=== PATIENT | male | born 1950 | race Caucasian/White ===

== ENCOUNTER 2017-09-08 00:46 | Emergency (ER) | payer OTHER ==
[~2017-09-08] VITALS: Ht 182.9 cm; Wt 95.2 kg
[~2017-09-08 00:46] MED LIST: BUSPIRONE HCL10 MG PO; MINIPRESS2 MG PO; MIRTAZAPINE30 MG PO; SEROQUEL XR50 MG PO
[2017-09-08] MEDS ORDERED: LIPITOR40 MG PO (01:21)
== END 2017-09-08 02:29 | disposition home or self-care (01) ==
LOC: ED 00:46
DX: F25.0 Schizoaffective disorder, bipolar type (principal); F43.10 Post-traumatic stress disorder, unspecified; F32.9 Major depressive disorder, single episode, unspecified; F17.200 Nicotine dependence, unspecified, uncomplicated; Z79.899 Other long term (current) drug therapy
CPT/HCPCS: 36415; 80053; 80176; 81001; 84443; 85025; 99283; G0480

== ENCOUNTER 2017-10-05 16:06 | Emergency (ER) | payer OTHER ==
[~2017-10-05 16:06] MED LIST changes: +LIPITOR40 MG PO
== END 2017-10-06 01:31 | disposition home or self-care (01) ==
LOC: ED 16:06
DX: Z00.00 Encounter for general adult medical examination without abnormal findings (principal); F32.9 Major depressive disorder, single episode, unspecified; F44.81 Dissociative identity disorder
CPT/HCPCS: 71010; 80053; 80176; 81001; 84443; 85025; 99283; G0480

== ENCOUNTER 2017-10-13 17:24 | Emergency (ER) | payer OTHER ==
[~2017-10-13] VITALS: Ht 182.9 cm; Wt 95.2 kg
== END 2017-10-13 21:15 | disposition home or self-care (01) ==
LOC: ED 17:24
DX: Z00.8 Encounter for other general examination (principal); F43.10 Post-traumatic stress disorder, unspecified; F20.9 Schizophrenia, unspecified; F17.200 Nicotine dependence, unspecified, uncomplicated; Z79.899 Other long term (current) drug therapy
CPT/HCPCS: 99283

== ENCOUNTER 2019-01-11 02:47 | Emergency (ER) | payer OTHER ==
[~2019-01-11] VITALS: Ht 182.9 cm; Wt 95.2 kg
[2019-01-11] MEDS ORDERED: BUSPIRONE HCL10 MG PO (05:24)
[2019-01-11] MEDS ORDERED: VITAMIN B-121000 MC3 PO (05:25)
[2019-01-11] MEDS ORDERED: REMERON15 MG PO (05:26)
[2019-01-11] MEDS ORDERED: MINIPRESS2 MG PO (05:26)
[2019-01-11] MEDS ORDERED: QUETIAPINE FUM100 MG PO (05:27)
[2019-01-11] MEDS ORDERED: B-1100 MG PO (05:28)
== END 2019-01-11 17:10 | disposition home or self-care (01) ==
LOC: ED 02:47
DX: F31.9 Bipolar disorder, unspecified (principal); F43.10 Post-traumatic stress disorder, unspecified; F17.200 Nicotine dependence, unspecified, uncomplicated; Z79.899 Other long term (current) drug therapy
CPT/HCPCS: 36415; 80053; 80176; 81001; 84443; 85025; 99284; G0480

== ENCOUNTER 2019-01-12 17:04 | Emergency (ER) | payer OTHER ==
[~2019-01-12] VITALS: Ht 182.9 cm; Wt 95.2 kg
[~2019-01-12 17:04] MED LIST changes: +B-1100 MG PO; +QUETIAPINE FUM100 MG PO; +REMERON15 MG PO; +VITAMIN B-121000 MC3 PO
--- OUTSIDE RECORDS SUMMARY | 2019-01-12 17:08 | XMS ---
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 Anna has no Care Guidelines for this patient. Ana Laura VISIT COUNT (12 MO.) 2 [facility] [place] TOTAL 2 NOTE: Visits indicate total known visits. ED/C VISIT TRACKING (12 MO.) 01/12/2019 17:05 [facility] [place] TYPE: Emergency COMPLAINT: - MEDICAL CLEARANCE 01/11/2019 02:47 [facility] [place] TYPE: Emergency COMPLAINT: - MEDICAL CLEARANCE INPATIENT VISIT TRACKING (12 MO.) No inpatient visits to display in this time frame [email or web address]
== END 2019-01-12 21:34 | disposition home or self-care (01) ==
LOC: ED 17:04
DX: F25.0 Schizoaffective disorder, bipolar type (principal); F17.200 Nicotine dependence, unspecified, uncomplicated; Z79.899 Other long term (current) drug therapy
CPT/HCPCS: 36415; 80053; 80176; 81001; 84443; 85025; 99285; G0480

== ENCOUNTER 2019-01-14 12:02 | Emergency (ER) | payer OTHER ==
[~2019-01-14] VITALS: Ht 182.9 cm; Wt 95.2 kg
--- OUTSIDE RECORDS SUMMARY | 2019-01-14 12:06 | XMS ---
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 Anna has no Care Guidelines for this patient. Ana Laura VISIT COUNT (12 MO.) 3 [facility] [place]. TOTAL 3 NOTE: Visits indicate total known visits. ED/C VISIT TRACKING (12 MO.) 01/14/2019 12:03 [facility] [place] TYPE: Emergency COMPLAINT: - SUICIDAL IDEATION 01/12/2019 17:05 [facility] [place] TYPE: Emergency COMPLAINT: - MEDICAL CLEARANCE 01/11/2019 02:47 [facility] [place] TYPE: Emergency COMPLAINT: - MEDICAL CLEARANCE DIAGNOSES: - Post-traumatic stress disorder, unspecified - Other meterman (current) drug therapy - Encounter for other general examination - Bipolar disorder, unspecified - Nicotine dependence, unspecified, uncomplicated INPATIENT VISIT TRACKING (12 MO.) No inpatient visits to display in this time frame [id number]
== END 2019-01-14 16:32 | disposition home or self-care (01) ==
LOC: ED 12:02
DX: F32.9 Major depressive disorder, single episode, unspecified (principal); E86.0 Dehydration; F43.10 Post-traumatic stress disorder, unspecified; F17.200 Nicotine dependence, unspecified, uncomplicated; Z79.899 Other long term (current) drug therapy
CPT/HCPCS: 36415; 80053; 80176; 81001; 84443; 85025; 87088; 99284; G0480

== ENCOUNTER 2019-01-18 17:38 | Emergency (ER) | payer OTHER ==
[~2019-01-18] VITALS: Ht 182.9 cm; Wt 95.2 kg
--- OUTSIDE RECORDS SUMMARY | 2019-01-18 17:40 | XMS ---
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 Anna has no Care Guidelines for this patient. Ana Laura VISIT COUNT (12 MO.) [address] [facility] [address] TOTAL 4 NOTE: Visits indicate total known visits. ED/C VISIT TRACKING (12 MO.) 01/18/2019 17:[address] [facility] [place] TYPE: Emergency COMPLAINT: - MEDICAL CLEARANCE 01/14/2019 12:03 [facility] TYPE: Emergency COMPLAINT: - SUICIDAL IDEATION DIAGNOSES: - Dehydration - Suicidal ideations - Major depressive disorder, single episode, unspecified - Other terminal carman (current) drug therapy - Nicotine dependence, unspecified, uncomplicated - Post-traumatic stress disorder, unspecified 01/12/2019 17:05 [facility] [place] TYPE: Emergency COMPLAINT: - MEDICAL CLEARANCE DIAGNOSES: - Other terminal carman (current) drug therapy - Schizoaffective disorder, bipolar type - Nicotine dependence, unspecified, uncomplicated 01/11/2019 02:[address] [facility] [place] TYPE: Emergency COMPLAINT: - MEDICAL CLEARANCE DIAGNOSES: - Post-traumatic stress disorder, unspecified - Other terminal carman (current) drug therapy - Encounter for other general examination - Bipolar disorder, unspecified - Nicotine dependence, unspecified, uncomplicated INPATIENT VISIT TRACKING (12 MO.) No inpatient visits to display in this time frame [id number]
== END 2019-01-18 18:50 | disposition home or self-care (01) ==
LOC: ED 17:38
DX: F43.10 Post-traumatic stress disorder, unspecified (principal); F44.81 Dissociative identity disorder; F39 Unspecified mood [affective] disorder; F32.9 Major depressive disorder, single episode, unspecified; F17.200 Nicotine dependence, unspecified, uncomplicated; Z79.899 Other long term (current) drug therapy
CPT/HCPCS: 99284

== ENCOUNTER 2019-01-19 06:06 | Emergency (ER) | payer OTHER ==
[~2019-01-19] VITALS: Ht 182.9 cm; Wt 95.3 kg
--- OUTSIDE RECORDS SUMMARY | 2019-01-19 06:08 | XMS ---
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 Anna has no Care Guidelines for this patient. Ana Laura VISIT COUNT (12 MO.) [address] [facility] [address] TOTAL 5 NOTE: Visits indicate total known visits. ED/C VISIT TRACKING (12 MO.) 01/19/2019 06:[address] [facility] [place] TYPE: Emergency COMPLAINT: - MEDICAL CLEARANCE 01/18/2019 17:39 [facility] [place] TYPE: Emergency COMPLAINT: - MEDICAL CLEARANCE 01/14/2019 12:03 [facility] [place] TYPE: Emergency COMPLAINT: - SUICIDAL IDEATION DIAGNOSES: - Dehydration - Suicidal ideations - Major depressive disorder, single episode, unspecified - Other terminal clerk (current) drug therapy - Nicotine dependence, unspecified, uncomplicated - Post-traumatic stress disorder, unspecified 01/12/2019 17:05 [facility] [place] TYPE: Emergency COMPLAINT: - MEDICAL CLEARANCE DIAGNOSES: - Other terminal clerk (current) drug therapy - Schizoaffective disorder, bipolar type - Nicotine dependence, unspecified, uncomplicated 01/11/2019 02:47 [facility] [place] TYPE: Emergency COMPLAINT: - MEDICAL CLEARANCE DIAGNOSES: - Post-traumatic stress disorder, unspecified - Other residential (current) drug therapy - Encounter for other general examination - Bipolar disorder, unspecified - Nicotine dependence, unspecified, uncomplicated INPATIENT VISIT TRACKING (12 MO.) No inpatient visits to display in this time frame [email or web address]
[2019-01-20] MEDS ORDERED: REMERON15 MG PO ×4 (08:21→13:17)
[2019-01-20] MEDS ORDERED: SEROQUEL50 MG PO ×2 (08:22→13:17)
== END 2019-01-20 14:24 | disposition home or self-care (01) ==
LOC: ED 06:06
DX: F22 Delusional disorders (principal); F31.9 Bipolar disorder, unspecified; F17.200 Nicotine dependence, unspecified, uncomplicated; Z79.899 Other long term (current) drug therapy
CPT/HCPCS: 36415; 80053; 80176; 81001; 85025; 99284; G0480